=== PATIENT | female | born 1950 | race Caucasian/White ===

== ENCOUNTER 2020-03-29 09:40 | Emergency (ER) | payer MEDICARE, MEDICAID ==
[~2020-03-29] VITALS: Ht 154.9 cm; Wt 63.5 kg
[2020-03-29] MEDS ORDERED: BLOOD PRESSURE MED (09:52)
[2020-03-29 10:45] VITALS: BP 149/88
== END 2020-03-29 10:46 | disposition home or self-care (01) ==
LOC: M.ERS 09:40
DX: S66.812A Strain of other specified muscles, fascia and tendons at wrist and hand level, left hand, initial encounter (principal); S66.811A Strain of other specified muscles, fascia and tendons at wrist and hand level, right hand, initial encounter; I10 Essential (primary) hypertension; Z91.048 Other nonmedicinal substance allergy status; W06.XXXA Fall from bed, initial encounter; Y93.89 Activity, other specified; Y92.89 Other specified places as the place of occurrence of the external cause; Y99.8 Other external cause status